=== PATIENT | female | born 1965 | race Caucasian/White ===

== ENCOUNTER 2021-11-07 15:43 | Emergency (ER) | payer OTHER ==
[~2021-11-07] VITALS: Ht 162.6 cm; Wt 81.7 kg
[~2021-11-07 15:43] MED LIST: ASPI325 PO; AZIT250 PO; BENADRYL; BUPR150T2 PO; CODACE30 PO; DIPH50 PO; ENALAPRIL; FAMO20 PO; HYDACE5 PO; HYDCHL25 PO; HYDR1TAB94 PO; IBUPROFEN; MECL25 PO; MULVITA PO; Mobic15 MG PO; POTA20PAC PO; PRED10 PO; PRED20 PO; PROCARDIA; PROP120ER PO; RANI150 PO; WELLBUTRIN
[2021-11-07] MEDS ORDERED: BUPR75 PO (15:56)
[2021-11-07] MEDS ORDERED: LOSARTAN 50 MG (15:57)
[2021-11-07] MEDS ORDERED: Floxin10 ML LEFTEYE (16:40)
== END 2021-11-07 17:00 | disposition home or self-care (01) ==
LOC: ER 15:43
DX: H16.002 Unspecified corneal ulcer, left eye (principal); Z88.5 Allergy status to narcotic agent; Z88.8 Allergy status to other drugs, medicaments and biological substances; Z91.018 Allergy to other foods; Z87.891 Personal history of nicotine dependence; Z97.3 Presence of spectacles and contact lenses
CPT/HCPCS: A9270

== ENCOUNTER 2022-01-19 19:52 | Emergency (ER) | payer OTHER ==
[~2022-01-19] VITALS: Ht 162.6 cm; Wt 83.9 kg
[~2022-01-19 19:52] MED LIST changes: +BUPR75 PO; +Floxin10 ML LEFTEYE; +LOSARTAN 50 MG
[2022-01-19 20:28] LABS: BASOPHILS ABSOLUTE AUTO 0.03 K/mm3 (0.00-0.23); BASOPHILS PERCENT AUTO 1 % (0-2); EOSINOPHILS ABSOLUTE AUTO 0.19 K/mm3 (0.00-0.68); EOSINOPHILS PERCENT AUTO 4 % (0-6); Hematocrit 37.9 % (33.0-51.0); Hemoglobin 12.7 g/dL (11.5-16.0); IMMATURE GRAN ABSOLUTE AUTO 0.01 K/mm3 (0.00-0.10); IMMATURE GRAN PERCENT AUTO 0 % (0-1); LYMPHOCYTES ABSOLUTE AUTO 1.88 K/mm3 (0.84-5.20); LYMPHOCYTES PERCENT AUTO 36 % (21-46); MONOCYTES ABSOLUTE AUTO 0.41 K/mm3 (0.16-1.47); MONOCYTES PERCENT AUTO 8 % (4-13); Mean Corpuscular HGB 30.7 pg (26.0-34.0); Mean Corpuscular HGB Conc 33.5 g/dL (31.5-36.5); Mean Corpuscular Volume 92 fL (80-100); Mean Platelet Volume 9.3 fL (9.1-12.4); NEUTROPHILS ABSOLUTE AUTO 2.72 K/mm3 (1.96-9.15); NEUTROPHILS PERCENT AUTO 52 % (41-73); Platelet Count 352 K/mm3 (150-400); RDW Coefficient Variation 13.2 % (11.7-14.2); RDW Standard Deviation 44.2 fL (35.1-46.3); Red Blood Cell Count 4.14 M/mm3 (3.80-5.20); White Blood Cell Count 5.24 K/mm3 (4.00-11.30)
[2022-01-19 20:50] LABS: Albumin, Blood 3.6 g/dL (3.4-5.0); Albumin/Globulin Ratio 1.1 (0.8-1.8); Bilirubin, Total 0.4 mg/dL (0.1-1.0); Bun/Creatinine Ratio 16.7 (12.0-20.0); Calcium, Blood 9.6 mg/dL (8.5-10.1); Creatinine, Blood 1.08 mg/dL (0.40-1.00); Globulin, Blood 3.4 g/dL (2.2-4.0); Potassium, Blood 3.2 mmol/L (3.5-5.5)
[2022-01-20] MEDS ORDERED: SULTRIDS PO (00:58)
[2022-01-20] MEDS ORDERED: AMOCLA875 PO (00:58)
== END 2022-01-20 01:39 | disposition home or self-care (01) ==
LOC: ER 19:52
PROVIDERS: Physician Assistant
DX: H05.012 Cellulitis of left orbit (principal); I10 Essential (primary) hypertension; Z88.8 Allergy status to other drugs, medicaments and biological substances; Z88.5 Allergy status to narcotic agent; Z91.018 Allergy to other foods; Z79.899 Other long term (current) drug therapy; Z87.891 Personal history of nicotine dependence
CPT/HCPCS: 36415; 70481; 70496; 80053; 85025; A9270; Q9967